=== PATIENT | male | born 1980 | race African-American/Black ===

== ENCOUNTER 2017-10-19 12:35 | Emergency (ER) | payer OTHER ==
[2017-10-19 13:53] LABS: #Lymphocytes 1.3 thou/uL (1.20-3.40); #Monocytes 0.7 thou/uL (0.11-0.59); #Neutrophils 3.4 thou/uL (1.40-6.50); %Basophils 0.6 % (0.0-1.0); %Eosinophils 0.4 % (0.0-10.0); %Lymphocytes 23.6 % (21.0-51.0); %Monocytes 12.6 % (0.0-10.0); Hematocrit 43.6 % (36.0-47.0); Mean Platelet Volume 5.8 fL (7.4-10.4); Red Blood Cell (RBC) Count 4.56 mill/uL (4.20-5.40); White Blood Cell (WBC) Count 5.3 thou/uL (4.8-10.8)
--- NOTE | 2017-10-19 14:08 | RAD ---
THREE VIEWS OF THE RIGHT FOOT: Indication: Right foot wound. FINDINGS: There is healed fracture deformity involving the fourth digit proximal phalangeal head and neck regio n. No acute fracture or subluxation is evident. No destructive osteolysis is present. There is a susp ected Band-Aid wound dressing underlying the plantar aspect of the midfoot. No radiopaque foreign bod y is evident. IMPRESSION: 1. No acute osseous abnormality. No definite radiographic evidence of osteomyelitis. 2. Soft tissue swelling of the right foot with a wound suspected in the region of the plantar base of the midfoot. POS: [facility]
[2017-10-19 14:10] LABS: Acetaminophen Less than 6.0 mcg/mL (10.0-30.0); Salicylate Less than 8.0 mg/dL (15.0-30.0)
--- NOTE | 2017-10-19 14:10 | RAD ---
LEFT FOOT THREE VIEWS: History: Open doors on foot. Comparison: None. FINDINGS: No fracture. No malalignment. No evidence of erosion. There is a plantar soft tissue ulcer midfoot. N o erosions or periostitis. IMPRESSION: Plantar soft tissue ulcer without evidence of osteomyelitis. POS: [facility]
[2017-10-19 14:11] LABS: ALT (SGPT) 32 U/L (8-55); AST (SGOT) 26 U/L (5-34); Alkaline Phosphatase 71 U/L (40-150); Anion Gap 11 mmol/L (10-20); BUN (Urea Nitrogen) 9 mg/dL (7.0-18.7); Bilirubin, Total 0.8 mg/dL (0.2-1.2); Calc. Creatinine Clearance 0 mL/min (70-130); Calcium 9.3 mg/dL (7.8-10.44); Carbon Dioxide 26 mmol/L (22-29); Chloride 104 mmol/L (98-107); Estimated GFR-MDRD 79; Globulin 4.3 g/dL (2.4-3.5)
== END 2017-10-19 16:30 | disposition home or self-care (01) ==
LOC: ERS 12:35 → EDSEX 12:35 → ERS 16:30
DX: L08.9 Local infection of the skin and subcutaneous tissue, unspecified (principal); F20.9 Schizophrenia, unspecified; F32.9 Major depressive disorder, single episode, unspecified; F41.9 Anxiety disorder, unspecified; F17.210 Nicotine dependence, cigarettes, uncomplicated
CPT/HCPCS: 36415; 80053; 80307; 85025

== ENCOUNTER 2018-01-01 23:45 | Emergency (ER) | payer OTHER | END 2018-01-02 02:27 | disposition left against medical advice (07) | LOC: ERS 23:45 | DX: K13.70 Unspecified lesions of oral mucosa (principal); F41.9 Anxiety disorder, unspecified; F32.9 Major depressive disorder, single episode, unspecified; F20.9 Schizophrenia, unspecified; F17.210 Nicotine dependence, cigarettes, uncomplicated; Z79.899 Other long term (current) drug therapy ==